=== PATIENT | female | born 1990 | race Asian ===

== ENCOUNTER 2023-02-03 09:35 | Observation (INO) | payer OTHER ==
[2023-02-03 09:58] VITALS: BMI 28.0
[2023-02-03] MEDS ORDERED: SODIUM CHLORIDE 0.9% 1000 ML INFUS.BAG IV ONE ×2 (10:32→15:13)
[2023-02-03] MEDS ORDERED: ACETAMINOPHEN 1000 MG/100 ML BAG IVPB ONE (10:32)
[2023-02-03] MEDS ORDERED: ACETAMINOPHEN INJECTION 100 ML IVPB ONE (10:36)
[2023-02-03 11:25] LABS: BASO % 0.3 % (0-2.0); EOS % 0.4 % (0-4.5); HEMATOCRIT 35.4 % (32.4-45.2); HEMOGLOBIN 11.9 GM/dL (10.7-15.3); LYMPH % 8.9 % (8-40); MCH 28.4 pg (25.7-33.7); MCHC 33.5 g/dl (32.0-36.0); MEAN CELL VOLUME 84.5 fl (80-96); MEAN PLT VOLUME 7.3 fl (7.5-11.1); NEUT % 84.4 % (42.8-82.8); PLATELET COUNT 207 10^3/uL (134-434); RBC 4.18 M/mm3 (3.60-5.2); RDW 15.7 % (11.6-15.6); WHITE BLOOD COUNT 12.6 K/mm3 (4.0-10.0)
[2023-02-03 11:27] LABS: EPI CELLS 18 /uL (0-25.1); HYALINE CASTS 1 /uL (0-3.1); PH,URINE 6.5 (5.0-8.0); URINE APPEARANCE CLEAR; URINE BACTERIA 102 /uL (0-1359); URINE BILIRUBIN NEGATIVE (NEGATIVE); URINE COLOR YELLOW; URINE GLUCOSE (UA) NEGATIVE (NEGATIVE); URINE KETONE 4+ (NEGATIVE); URINE LEUK ESTERASE 1+ (NEGATIVE); URINE NITRITE NEGATIVE (NEGATIVE); URINE PROTEIN TRACE (NEGATIVE); URINE RBC 154 /uL (0-23.9); URINE UROBILINOGEN 0.2 mg/dL (0.2-1.0); URINE WBC 17 /uL (0-25.8)
[2023-02-03 11:50] LABS: POTASSIUM 3.9 mmol/L (3.5-5.1)
[2023-02-03 11:52] LABS: CALCIUM 8.4 mg/dL (8.5-10.1)
[2023-02-03 11:53] LABS: BLOOD UREA NITROGEN 13.1 mg/dL (7-18)
[2023-02-03 11:57] LABS: BILIRUBIN,TOTAL 0.8 mg/dL (0.2-1); TOT PROT 6.8 g/dl (6.4-8.2)
[2023-02-03] MEDS ORDERED: CEFTRIAXONE 1 GM in DEXTROSE 5%-WATER - 100 ML IVPB ONE (13:18)
[2023-02-03] MEDS ORDERED: cefTRIAXone SODIUM 1 GM VIAL ONE ×2 (13:48→14:04)
[2023-02-03] MEDS ORDERED: CEFTRIAXONE 1 GM/50 ML BAG ONE ×2 (14:05→15:58)
[2023-02-03] MEDS ORDERED: SODIUM CHLORIDE 1,000 ML IV SCH (18:45)
[2023-02-04] MEDS ORDERED: ACETAMINOPHEN 500 MG TABLET (FP) PO PRN (08:04)
[2023-02-04 09:09] LABS: BASO % 0.2 % (0-2.0); EOS % 2.4 % (0-4.5); HEMATOCRIT 29.3 % (32.4-45.2); LYMPH % 17.6 % (8-40); MCHC 34.2 g/dl (32.0-36.0); MEAN CELL VOLUME 84.6 fl (80-96); MEAN PLT VOLUME 7.2 fl (7.5-11.1); MONO % 8.3 % (3.8-10.2); NEUT % 71.5 % (42.8-82.8); PLATELET COUNT 175 10^3/uL (134-434); RBC 3.47 M/mm3 (3.60-5.2); RDW 15.6 % (11.6-15.6); WHITE BLOOD COUNT 7.4 K/mm3 (4.0-10.0)
[2023-02-04 09:20] LABS: POTASSIUM 3.7 mmol/L (3.5-5.1)
[2023-02-04 09:21] LABS: BLOOD UREA NITROGEN 7.2 mg/dL (7-18); CALCIUM 7.5 mg/dL (8.5-10.1)
[2023-02-04 09:25] LABS: CREATININE 0.5 mg/dL (0.55-1.3)
[2023-02-04] MEDS ORDERED: CEFTRIAXONE 1 GM in DEXTROSE 5%-WATER - 50 ML IVPB SCH (10:00)
[2023-02-04] MEDS ORDERED: PRENATAL VITAMINS W/ FOLIC ACID TABLET (FP) PO SCH (10:00)
[2023-02-04 15:02] VITALS: BP 94/48; PULSE 74; RESP 16; TEMP 98.2
== END 2023-02-04 15:11 | disposition home or self-care (01) ==
LOC: JER 09:35 → JERBED 15:04 → UNDOADMOB 15:04 → INTOOBSV 15:04 → JERBED 15:28 → JLDR 17:31 → J3W 21:32
PROVIDERS: ADMIT Internal Medicine; ATTEND Nurse Practitioner Family
PROC: 3E033NZ Introduction of Analgesics, Hypnotics, Sedatives into Peripheral Vein, Percutaneous Approach (ICD-10-PCS; principal; 2023-02-03)
PROC: 3E03329 Introduction of Other Anti-infective into Peripheral Vein, Percutaneous Approach (ICD-10-PCS; 2023-02-03)
PROC: 3E0337Z Introduction of Electrolytic and Water Balance Substance into Peripheral Vein, Percutaneous Approach (ICD-10-PCS; 2023-02-03)
DX: N17.9 Acute kidney failure, unspecified (principal); R82.81 Pyuria; D72.829 Elevated white blood cell count, unspecified; O26.893 Other specified pregnancy related conditions, third trimester; Z3A.36 36 weeks gestation of pregnancy; M54.9 Dorsalgia, unspecified; R10.9 Unspecified abdominal pain; N13.30 Unspecified hydronephrosis; J45.909 Unspecified asthma, uncomplicated; Z86.32 Personal history of gestational diabetes
CPT/HCPCS: 36415; 76775-TC; 76856-TC; 80048; 80053; 81003; 83036; 83735; 85025; 87086; 99291; G0378

== ENCOUNTER 2023-03-02 02:55 | Inpatient (IN) | payer OTHER ==
[2023-03-02] MEDS ORDERED: ELECTROLYTE-148 SOLN 1,000 ML IV SCH (04:00)
[2023-03-02 04:08] VITALS: BMI 28.1
[2023-03-02 04:32] LABS: BASO % 0.8 % (0-2.0); EOS % 2.1 % (0-4.5); HEMATOCRIT 37.2 % (32.4-45.2); HEMOGLOBIN 12.3 GM/dL (10.7-15.3); LYMPH % 16.7 % (8-40); MCHC 33.1 g/dl (32.0-36.0); MEAN CELL VOLUME 84.6 fl (80-96); MEAN PLT VOLUME 7.7 fl (7.5-11.1); MONO % 7.2 % (3.8-10.2); NEUT % 73.2 % (42.8-82.8); PLATELET COUNT 184 10^3/uL (134-434); RDW 16.4 % (11.6-15.6); WHITE BLOOD COUNT 10.4 K/mm3 (4.0-10.0)
[2023-03-02 04:39] LABS: INR 0.86 (0.83-1.09)
[2023-03-02 04:42] LABS: ACTIVATED PTT 29.7 SECONDS (25.2-36.5)
[2023-03-02 04:52] LABS: CALCIUM 9.8 mg/dL (8.5-10.1)
[2023-03-02 04:53] LABS: BLOOD UREA NITROGEN 12.7 mg/dL (7-18)
[2023-03-02 04:56] LABS: CREATININE 0.6 mg/dL (0.55-1.3)
[2023-03-02] MEDS ORDERED: PROMETHAZINE HCL 25 MG/1 ML VIAL IVPB ONE (07:15)
[2023-03-02] MEDS ORDERED: BUTORPHANOL TARTRATE 2 MG/ML VIAL IVPB ONE (07:15)
[2023-03-02] MEDS ORDERED: NALOXONE HCL 0.4 MG/ML VIAL IVPUSH PRN (08:10)
[2023-03-02] MEDS ORDERED: FENTANYL/BUPIVACAINE/NS/PF - PCEA - 50 ML DISP.SYRIN EP SCH (08:15)
[2023-03-02] MEDS ORDERED: FENTANYL CITRATE/PF 50 MCG/ML VIAL ONE (08:17)
[2023-03-02] MEDS ORDERED: FENTANYL/BUPIVACAINE/NS/PF - PCEA - 50 ML DISP.SYRIN EP ONE ×2 (08:18→13:38)
[2023-03-02] MEDS ORDERED: LACTATED RINGERS SOLUTION 1,000 ML/1,000 ML INFUS.BAG IV SCH (08:30)
[2023-03-02] MEDS ORDERED: OXYTOCIN 30 UNITS in 0.9% NS 30 UNIT/500 ML INFUS.BAG IVPB ONE (09:54)
[2023-03-02] MEDS ORDERED: OXYTOCIN 30 UNITS in 0.9% NS 30 UNIT/500 ML INFUS.BAG IVPB SCH (10:00)
[2023-03-02] MEDS ORDERED: AMPICILLIN SODIUM 2 GM VIAL ONE (15:57)
[2023-03-02] MEDS ORDERED: AMPICILLIN - 2 GM in SODIUM CHLORIDE 100 ML IVPB ONE (16:00)
[2023-03-02] MEDS ORDERED: OXYTOCIN 20 UNITS in 0.9% NS 20 UNIT/1,000 ML INFUS.BAG IV ONE ×2 (17:27→20:40)
[2023-03-02] MEDS ORDERED: LIDO 2%/EPI 1:200000 PRESRVFRE (20 ML SDVIAL) ONE (17:27)
[2023-03-02] MEDS ORDERED: ONDANSETRON 4 MG/2 ML VIAL ONE (17:32)
[2023-03-02] MEDS ORDERED: ePHEDrine SULFATE 50 MG/1 ML AMPULE ONE (17:32)
[2023-03-02] MEDS ORDERED: morphine SULFATE/PF 1 MG/2 ML (2cc Syringe - QUVA) ONE (17:32)
[2023-03-02] MEDS ORDERED: ONDANSETRON 4 MG/2 ML VIAL IVPUSH PRN (17:35)
[2023-03-02] MEDS ORDERED: morphine SULFATE/PF 1 MG/2 ML (2cc Syringe - QUVA) EP ONE (17:35)
[2023-03-02] MEDS ORDERED: ceFAZolin SODIUM 1 GM VIAL ONE (18:03)
[2023-03-02] MEDS ORDERED: ACETAMINOPHEN INJECTION 100 ML IVPB ONE (19:17)
[2023-03-02] MEDS: ACETAMINOPHEN 1000 MG/100 ML BAG IVPB PRN (19:20)
[2023-03-02] MEDS ORDERED: METHYLERGONOVINE MALEATE 0.2 MG/1 ML AMP IM PRN (19:38)
[2023-03-02] MEDS ORDERED: ACETAMINOPHEN 325 MG TABLET (FP) PO PRN (19:38)
[2023-03-02] MEDS ORDERED: IBUPROFEN 800 MG/8 ML IJ IVPB PRN (19:38)
[2023-03-02] MEDS: OXYTOCIN 20 UNITS in 0.9% NS 20 UNIT/1,000 ML INFUS.BAG IV SCH (20:45)
[2023-03-02] MEDS ORDERED: IBUPROFEN 800 MG/8 ML IJ IVPB ONE (21:25)
[2023-03-03] MEDS: CEFAZOLIN SODIUM 2 GM in DEXTROSE 5%-WATER 100 ML IVPB SCH ×2 (01:47→10:23)
[2023-03-03] MEDS: OXYTOCIN 20 UNITS in 0.9% NS 20 UNIT/1,000 ML INFUS.BAG IV SCH (06:00)
[2023-03-03] MEDS ORDERED: oxyCODONE HCL 5 MG TABLET PO PRN ×2 (07:38)
[2023-03-03 08:48] LABS: BASO % 0.1 % (0-2.0); EOS % 0.5 % (0-4.5); HEMATOCRIT 32.3 % (32.4-45.2); HEMOGLOBIN 10.7 GM/dL (10.7-15.3); LYMPH % 5.9 % (8-40); MCH 28.1 pg (25.7-33.7); MEAN CELL VOLUME 85.2 fl (80-96); MEAN PLT VOLUME 7.3 fl (7.5-11.1); NEUT % 87.5 % (42.8-82.8); PLATELET COUNT 128 10^3/uL (134-434); RDW 16.5 % (11.6-15.6); WHITE BLOOD COUNT 13.2 K/mm3 (4.0-10.0)
[2023-03-03] MEDS: ACETAMINOPHEN 1000 MG/100 ML BAG IVPB PRN (09:48)
[2023-03-03] MEDS: PRENATAL VITAMINS W/ FOLIC ACID TABLET (FP) PO SCH (10:23)
[2023-03-03] MEDS: FERROUS SO4 325 MG TABLET (FP) PO SCH (10:23)
[2023-03-03 14:26] LABS: POC NITRAZINE POS
[2023-03-03] MEDS: IBUPROFEN 600 MG TABLET (FP) PO PRN (17:34)
[2023-03-03] MEDS ORDERED: BISACODYL 10 MG SUPP.RECT RC PRN (19:38)
[2023-03-03] MEDS: SENNOSIDES/DOCUSATE COMBO (SENNA PLUS) TABLET (UD) PO PRN (21:00)
[2023-03-04] MEDS: SIMETHICONE 80 MG TAB.CHEW (FP) PO PRN ×2 (02:43→10:01)
[2023-03-04] MEDS: IBUPROFEN 600 MG TABLET (FP) PO PRN ×3 (02:43→20:19)
[2023-03-04] MEDS: FERROUS SO4 325 MG TABLET (FP) PO SCH (10:01)
[2023-03-04] MEDS: PRENATAL VITAMINS W/ FOLIC ACID TABLET (FP) PO SCH (10:01)
[2023-03-04] MEDS: SENNOSIDES/DOCUSATE COMBO (SENNA PLUS) TABLET (UD) PO PRN (22:06)
[2023-03-04 22:13] VITALS: TEMP 98.8
[2023-03-05] MEDS: IBUPROFEN 600 MG TABLET (FP) PO PRN (02:54)
[2023-03-05 08:08] VITALS: RESP 16
[2023-03-05 08:09] VITALS: BP 93/58; PULSE 100
[2023-03-05 08:33] LABS: BASO % 0.3 % (0-2.0); EOS % 2.1 % (0-4.5); HEMATOCRIT 30.7 % (32.4-45.2); HEMOGLOBIN 10.1 GM/dL (10.7-15.3); LYMPH % 13.4 % (8-40); MCH 28.4 pg (25.7-33.7); MEAN CELL VOLUME 85.9 fl (80-96); MEAN PLT VOLUME 7.3 fl (7.5-11.1); MONO % 5.4 % (3.8-10.2); NEUT % 78.8 % (42.8-82.8); PLATELET COUNT 176 10^3/uL (134-434); RBC 3.57 M/mm3 (3.60-5.2); RDW 16.8 % (11.6-15.6); WHITE BLOOD COUNT 13.1 K/mm3 (4.0-10.0)
[2023-03-05 08:41] LABS: POTASSIUM 3.6 mmol/L (3.5-5.1)
[2023-03-05 08:42] LABS: CALCIUM 8.5 mg/dL (8.5-10.1)
[2023-03-05 08:43] LABS: BLOOD UREA NITROGEN 5.3 mg/dL (7-18)
[2023-03-05 08:46] LABS: CREATININE 0.5 mg/dL (0.55-1.3)
[2023-03-05] MEDS: PRENATAL VITAMINS W/ FOLIC ACID TABLET (FP) PO SCH (09:07)
[2023-03-05] MEDS: FERROUS SO4 325 MG TABLET (FP) PO SCH (09:07)
== END 2023-03-05 14:17 | disposition home or self-care (01) | DRG 787 ==
LOC: JLDR 02:55 → J3W 21:45
PROVIDERS: ADMIT Obstetrics & Gynecology; ATTEND Obstetrics & Gynecology
PROC: 10D00Z1 Extraction of Products of Conception, Low, Open Approach (ICD-10-PCS; principal; 2023-03-02)
DX: O41.1230 Chorioamnionitis, third trimester, not applicable or unspecified (principal); O75.2 Pyrexia during labor, not elsewhere classified; O76 Abnormality in fetal heart rate and rhythm complicating labor and delivery; O24.420 Gestational diabetes mellitus in childbirth, diet controlled; O77.0 Labor and delivery complicated by meconium in amniotic fluid; Z3A.40 40 weeks gestation of pregnancy; Z37.0 Single live birth
CPT/HCPCS: 36415; 80048; 82962; 83986-QW; 85025; 85610; 85730; 86780; 86850; 86900; 86901; 88307-TC